=== PATIENT | male | born 1950 | race Caucasian/White ===

== ENCOUNTER 2021-04-05 09:11 | Day surgery (SDCO) | payer MEDICARE ==
[~2021-04-05] VITALS: Ht 188 cm; Wt 108.0 kg
[2021-04-05 09:51] LABS: BASOPHIL 0.2 % (0-2); EOSINOPHIL 0.3 % (0-7); HGB 14.8 g/dl (13.2-18.0); LYMPHOCYTE 13.2 % (15-48); MCH 33.3 pg (25.0-31.0); MCHC 35.2 g/dL (32.0-36.0); MCV 94.4 fL (78.0-100.0); MONOCYTE 7.6 % (0-12); MPV 10.3 fL (6.0-9.5); NEUTROPHIL 78.1 % (41-80); NRBC 0; PLT 144 K/uL (150-400); RBC 4.45 M/uL (4.70-6.00); RDW 12.5 % (11.5-14.0); WBC 13.1 K/uL (4.0-10.5)
[2021-04-05 10:07] LABS: ALBUMIN 3.7 g/dL (3.4-5.0); BILIRUBIN - TOTAL 0.9 mg/dL (0.2-1.0); BUN/CREAT RATIO (CALC) 17.1 RATIO; C-REACTIVE PROTEIN 2.8 mg/dL (<=0.90); CREATININE 0.82 mg/dL (0.67-1.17); GLOBULIN (CALCULATION) 4.2 g/dL; TOTAL PROTEIN 7.9 g/dL (6.4-8.2)
[2021-04-05 10:11] LABS: LACTIC ACID 1.5 mmol/L (0.4-1.9)
[2021-04-05 10:19] LABS: PRO-BNP 618 pg/mL (<125)
[2021-04-05 12:05] LABS: BILIRUBIN NEGATIVE (NEGATIVE); BLOOD NEGATIVE Ery/uL (NEGATIVE); CLARITY CLEAR (CLEAR); COLOR YELLOW (YELLOW); GLUCOSE (U) NORMAL (NORMAL); LEUKOCYTES NEGATIVE Leu/uL (NEGATIVE); NITRITE NEGATIVE (NEGATIVE); PROTEIN NEGATIVE (NEGATIVE); SPECIFIC GRAVITY 1.015 (1.001-1.030); UROBILINOGEN 0.2 mg/dL (0.2-1.0)
[2021-04-05 13:45] LABS: MAGNESIUM 2.1 mg/dL (1.8-2.4); PHOSPHORUS 2.8 mg/dL (2.6-4.7)
[2021-04-05] MEDS ORDERED: TOPROL XL 25MG25 MG PO (14:48)
[2021-04-05] MEDS ORDERED: CRESTOR20 MG PO (14:49)
[2021-04-05] MEDS ORDERED: NORVASC2.5 MG PO (14:49)
[2021-04-05] MEDS ORDERED: HCTZ25 MG PO (14:50)
[2021-04-05] MEDS ORDERED: PRINIVIL20 MG PO (14:50)
[2021-04-05] MEDS ORDERED: ASPIRIN EC81 MG PO (14:51)
[2021-04-06 06:00] LABS: BASOPHIL 0.2 % (0-2); EOSINOPHIL 0.3 % (0-7); HCT 39.3 % (42.0-52.0); HGB 13.4 g/dl (13.2-18.0); LYMPHOCYTE 15.1 % (15-48); MCH 32.7 pg (25.0-31.0); MCHC 34.1 g/dL (32.0-36.0); MCV 95.9 fL (78.0-100.0); MONOCYTE 9.1 % (0-12); MPV 10.6 fL (6.0-9.5); NEUTROPHIL 74.9 % (41-80); NRBC 0; PLT 138 K/uL (150-400); RDW 12.6 % (11.5-14.0); WBC 11.8 K/uL (4.0-10.5)
[2021-04-06 06:25] LABS: ALBUMIN 3.3 g/dL (3.4-5.0); BUN/CREAT RATIO (CALC) 12.9 RATIO; CREATININE 0.93 mg/dL (0.67-1.17); GLOBULIN (CALCULATION) 3.4 g/dL; POTASSIUM 3.9 mmol/L (3.5-5.1); TOTAL PROTEIN 6.7 g/dL (6.4-8.2)
[2021-04-06 06:50] LABS: CKMB <0.5 ng/mL (0.0-3.6); PRO-BNP 822 pg/mL (<125)
--- NOTE | 2021-04-06 12:10 | NUR ---
MET WITH PT AND SPOUSE AND KILO LEDEZMA. PT. WILL D/C HOME THIS DATE. PT. IS GETTING AN ECHO, THE NURSE IS TO SCHEDULE AN OUTPT NUCLEAR STRESS TEST AND AN APPT. WITH ABHI PEÑA. PT. IS INDEPENDENT AND DOES NOT REQUIRE ANY DME.
== END 2021-04-06 13:05 | disposition home or self-care (01) ==
LOC: FER 09:11 → FMS 13:24
PROVIDERS: Internal Medicine; Nurse Practitioner; ADMIT Allergy & Immunology Allergy
DX: R07.89 Other chest pain (principal); K85.90 Acute pancreatitis without necrosis or infection, unspecified; I10 Essential (primary) hypertension; I25.10 Atherosclerotic heart disease of native coronary artery without angina pectoris; I25.2 Old myocardial infarction; E78.5 Hyperlipidemia, unspecified; Z95.828 Presence of other vascular implants and grafts; Z79.899 Other long term (current) drug therapy; Z96.642 Presence of left artificial hip joint; Z98.890 Other specified postprocedural states; Z82.49 Family history of ischemic heart disease and other diseases of the circulatory system; Z87.19 Personal history of other diseases of the digestive system; Z20.822 Contact with and (suspected) exposure to COVID-19
CPT/HCPCS: 36415; 71045; 71275; 76705; 80053; 80061; 81003; 82150; 82553; 83605; 83690; 83735; 83880; 84100; 84484; 85025; 86140; 93005; 94010; 94760; 94762; C9113; G0378; J1650; J2270; J7030; Q9967; U0002